=== PATIENT | female | born 1980 | race Caucasian/White ===

== ENCOUNTER 2025-04-06 11:41 | Inpatient (IN) | payer OTHER, SELFPAY ==
--- NOTE | ~2025-04-06 | CT_ITS ---
CLINICAL HISTORY: RUQ epigastric pain. nausea Exam: CT Abdomen and Pelvis With IV Contrast Comparison: 04/06/2025 Findings: The liver density is homogeneous Gallbladder is enlarged measuring 5.1 x 12 cm containing multiple gallstones. The gallbladder wall is thickened measuring 7 mm with pericholecystic fluid. The spleen is normal in size No pancreatic ductal dilatation No hydronephrosis No urinary tract caliber are obstruction Normal bowel caliber No secondary signs of acute appendicitis No free fluid/free air No vascular abnormalities Bladder outline is smooth. Uterus is normal in size. A 1.6 cm left ovarian cyst and 10 mm right ovarian cyst are present. No suspicious skeletal lesions. Impression : Appearance consistent with acute cholecystitis with thickened gallbladder wall with sloughing of the mucosa. No signs of perforation at this time. This document has been electronically signed by: Odell Teresa MD on 04/06/2025 19:27:08
--- NOTE | ~2025-04-06 | US_ITS ---
CLINICAL HISTORY: RUQ pain hx gallstones --- Additional Notes or Special Instructions: look at GB, pancreas, liver, ducts US abdomen limited, with color and pulsed Doppler of the portal vein: Comparison: None Findings: Liver is enlarged measuring 20 cm with increased echogenicity consistent with hepatic disease such as fatty infiltration. Main portal vein Doppler shows antegrade flow. The gallbladder is distended measuring 5 x 12 cm containing multiple gallstones. Gallbladder wall thickness is borderline normal, 3.2 mm. No pericholecystic fluid. In the technologist's worksheet there is question of small anterior gallbladder wall fluid collection. This appearance is due to ring down artifact, not fluid No ascites in the right upper quadrant No sonographic Pickering sign. Common bile duct measures 4.1 mm Body of the pancreas is normal. No ductal dilatation. The tail and uncinate process are obscured by bowel gas. Right kidney is normal Impression: Distended gallbladder with cholelithiasis This document has been electronically signed by: Odell Teresa MD on 04/06/2025 14:14:46
[2025-04-06 11:44] VITALS: BP 124/76; PULSE 78; RESP 18; TEMP 36.6; O2SAT 98; BMI 44.5
--- NOTE | 2025-04-06 11:48 | ED_ITS ---
HPI - Abdominal Pain General Chief Complaint: Abdominal Pain Stated Complaint: abd pain Time Seen by Provider: 04/06/25 13:00 Source: patient, RN notes reviewed and old records reviewed Mode of arrival: ambulatory History of Present Illness ED Provider: Amparo López PA-C HPI narrative: 44-year-old female with a past medical history of gallstones presenting to the ED complaining of upper abdominal pain > RUQ x10 days with associated nausea, vomiting, diarrhea, and decreased p.o. intake. Denies fever, chills, dysuria/hematuria, flank pain. Reports decreased p.o. intake Related Data Allergies Allergy/AdvReac Type Severity Reaction Status Date / Time No Known Allergies Allergy Verified 04/06/25 11:47 Review of Systems Review of Systems Yes all other systems are reviewed and are negative Constitutional: Reports as per [facility] Past Medical History Attestation statement: The following information was validated with the patient. Source: old records reviewed Social History Social History Alcohol intake: current Alcohol intake frequency: holidays/special occasions only Smoked in Last 30 Days: Yes Use of substances other than those prescribed or required for medical reasons: Yes Substance Use Type: Marijuana Substance Use Frequency: Weekly Advance Directives: No Advance Directives Information Provided: No Do you have a plan to hurt others: No Plan Patient : No Physical Exam ED Vital Signs: Vital Signs - 24 hr 04/06/25 11:44 04/06/25 13:12 04/06/25 14:26 Temperature 98 F 98.2 F 98.1 F Pulse Rate 78 108 H 98 Respiratory Rate 18 18 16 Blood Pressure 124/76 125/85 122/78 Pulse Oximetry 98 95 96 Oxygen Delivery Method Room Air Room Air Room Air 04/06/25 16:06 04/06/25 18:56 Temperature 97.8 F 98.0 F Pulse Rate 90 82 Respiratory Rate 18 18 Blood Pressure 148/88 H 139/83 Pulse Oximetry 99 98 Oxygen Delivery Method Room Air Room Air BMI result Body Mass Index 44.5 Const General: cooperative, healthy appearing and no acute distress Orientation/consciousness: patient oriented x3 Limitations: no limitations HENMT Head: Yes normal to inspection and Yes atraumatic Ears: hearing grossly normal bilaterally General nose exam: Normal external nose present Face and sinus: Yes normal facial exam Eyes General: appearance normal, both eyes and all related structures EOM: EOMs intact bilaterally Neck Neck: Yes normal visual inspection and Yes no meningeal signs Resp Effort & Inspection: normal respiratory effort and no respiratory distress Cardio Rate: regular rate GI Inspection: Yes normal to inspection Palpation (GI): Soft to palpation, Tenderness to palpation present (GI) in the epigastrum and in the RUQ; with no rebound tenderness, no guarding and not rigid General: Yes no CVA tenderness Back/Spine/Pelvis Back: no CVA tenderness Skin Rashes: no rashes Wounds: no wounds Neuro General: patient oriented x3, tone normal and no meningeal signs Cranial nerves: Yes CN's II-XII intact bilaterally Gait exam (Neuro): Normal gait present Extrem General: Yes normal to inspection Course Course Course Narrative: This is a Rapid Medical Examination (RME) performed by Gabriel Carpenter PA-C in triage. Full HPI, ROS, assessment and treatment plan per primary provider in the Main ED. Hx: 44 yo F hx gallstones here w/ 10 days of RUQ/ epigastric pain. assoc nausea with eating. no vomiting. PE/vitals: ttp of epigastric/ RUQ, neg willams sign. Plan: labs, US -1419--leukocytosis of 11.7. Labs otherwise reassuring -UA negative US abdomen limited Impression: Distended gallbladder with cholelithiasis > will consult General surgery Dr. Menezes >> general surgery evaluated patient and recommended obtaining CT AP with p.o. and IV contrast 1930-- CT abdomen pelvis w IV con Impression : Appearance consistent with acute cholecystitis with thickened gallbladder wall with sloughing of the mucosa. No signs of perforation at this time. > will re-consult surgery -1955--recommended starting Rocephin and Flagyl > patient to be admitted for acute cholecystitis Medical Decision Making Medical Decision Making MDM Narrative: 44-year-old female with a past medical history of gallstones presenting to the ED complaining of upper abdominal pain > RUQ x10 days with associated nausea, vomiting, diarrhea, and decreased p.o. intake. On exam vital signs stable, NAD, nontoxic appearing, with epigastric/RUQ tenderness, no rebound or guarding, no CVAT. Concern for cholecystitis/lithiasis vs pancreatitis. Lower suspicion for atypical ACS, appendicitis/diverticulitis or renal stone/pyelo Plan: Labs, UA, abdominal ultrasound, IVF, pain control, re-evaluate Please refer to course for remaining clinical decision making, interpretation of labs/imaging results, and discussions with consultants and/or family members. Differential Diagnosis Differential Diagnoses: The differential diagnosis associated with the presentation includes As above Admission/Observation Consideration of admission/observation: Escalation of care including admission/observation considered Lab Data MDM Lab Attestation statement: I reviewed the patient's lab results. 04/06/25 11:54 04/06/25 11:54 Labs: Lab Results 04/06/25 04/06/25 Range/Units 11:54 13:14 WBC 11.7 H (4.8-10.8) X10*3/uL RBC 4.41 (4.20-5.50) X10*6/uL Hgb 12.7 (12.0-16.0) g/dl Hct 38.5 (37.0-47.0) % MCV 87.3 (80.0-98.0) fL MCH 28.8 (27.0-33.0) pg MCHC 33.0 (31.0-35.0) g/dl RDW 13.3 (11.0-16.0) % Plt Count 427 H (160-400) X10*3/uL MPV 9.4 (9.4-12.3) fL Immature Gran % (Auto) 0.6 H (0.0-0.4) % Neut % (Auto) 61.0 (45-73) % Lymph % (Auto) 26.7 (20-40) % Ritchie % (Auto) 6.4 (2-11) % Eos % (Auto) 4.3 H (0-4) % Baso % (Auto) 1.0 (0-2) % Lymph # (Auto) 3.1 (1.2-4.9) X10*3/uL Ritchie # (Auto) 0.8 (0.1-1.2) X10*3/uL Eos # (Auto) 0.5 H (0.0-0.4) X10*3/uL Baso # (Auto) 0.1 (0.0-0.2) X10*3/uL Abs Immat Gran (auto) 0.07 H (0.00-0.03) X10*3/uL Absolute Neuts (auto) 7.1 (2.0-8.3) x10*3/uL Absolute Nucleated RBC 0.000 (0.0-0.012) X10*3/uL Nucleated RBC % (auto) 0.0 (0.0-0.2) /100WBC Sodium 140 (135-145) mmol/L Potassium 4.1 (3.3-5.1) mmol/L Chloride 106 (96-108) mmol/L Carbon Dioxide 26 (22-29) mmol/L Anion Gap 12 (12-20) BUN 9 (9-16) mg/dL Creatinine 0.59 (0.5-1.4) mg/dL Estim Creat Clear Calc 127.9 Estimated GFR > 60 Random Glucose 92 (60-115) mg/dL Calcium 9.4 (8.4-10.2) mg/dL Magnesium 2.1 (1.6-2.6) mg/dL Total Bilirubin 0.2 (0.0-1.0) mg/dL Direct Bilirubin < 0.2 (0.0-0.5) mg/dL AST 21 (5-31) U/L ALT 15 (0-31) U/L Alkaline Phosphatase 113 (39-117) U/L Total Protein 7.8 (6.5-8.0) g/dL Albumin 4.3 (3.5-5.0) g/dL Lipase 42 (8-78) U/L Beta HCG, Quant < 2 mIU/mL Urine Color Yellow Urine Appearance Cloudy Urine pH 5.5 (5.0-9.0) Ur Specific [place] 1.025 (1.005-1.025) Urine Protein Negative (Neg-Trace) mg/dL Urine Glucose (UA) Negative (Negative) mg/dL Urine Ketones Negative (Negative) mg/dL Urine Blood Negative (Negative) Urine Nitrite Negative (Negative) Ur Leukocyte Esterase Negative (Negative) Independent Interpretation I performed an independent interpretation of an: Ultrasound Radiology Impression Discussion of test interpretation with radiology: I have reviewed the radiologist's reading. External Record Review External record reviewed: Inpatient record, Office record, Outpatient record, Prior outpatient labs, Prior outpatient radiology, Primary care record and Outside ED record Tests considered The following testing was considered but not selected: As above Prescription Management I considered prescription management with: Pain Medication Social Determinants Patient?s care significantly limited by Social Determinants of Health including: Other Social Determinant of Health Medications Administered Discontinued Medications Generic Name Dose Route Start Last Admin Trade Name Kwesi PRN Reason Stop Dose Admin Diatrizoate Meglum/Diatrizoate Sod 30 ml 04/06/25 19:05 04/06/25 19:05 Diatrizoate Meglumine, Sodium 30 Ml Solution PO 04/06/25 19:06 30 ml ONCE ONE Administration Sodium Chloride 1,000 mls @ 999 mls/hr 04/06/25 13:15 04/06/25 15:09 Ns IV 04/06/25 14:15 Infused .Q1H1M [id number] Infusion Iohexol 100 ml 04/06/25 19:04 04/06/25 19:04 Iohexol 350 Mg/Ml 100 Ml Infus..Btl IV 04/06/25 19:05 85 ml ONCE ONE Administration Ketorolac Tromethamine 15 mg 04/06/25 13:04 04/06/25 13:53 Ketorolac Tromethamine 15 Mg/Ml Vial IVPUSH 04/06/25 13:05 15 mg ONCE ONE Administration Ondansetron HCl 4 mg 04/06/25 13:04 04/06/25 13:53 Ondansetron Hcl 4 Mg/2 Ml Vial IVPUSH 04/06/25 13:05 4 mg ONCE ONE Administration Critical Care Time Critical Care Time Critical Care Time: Yes Total Critical Care Time: 45 Attestation: I have personally provided critical care time exclusive of time spent on separately billable procedures. Time includes review of lab data, radiology results, discussion with consultants, and monitoring for potential decompensation. Intervention performed as documented. Discharge Plan Discharge Clinical Impression: Acute cholecystitis Patient Disposition: Admitted As Inpatient Print Language: Kosovan
[2025-04-06 11:59] LABS: Hematocrit 38.5 % (37.0-47.0); Hemoglobin 12.7 g/dl (12.0-16.0); Imm Gran Abs Auto 0.07 X10*3/uL (0.00-0.03); Imm Gran Pct Auto 0.6 % (0.0-0.4); Lymphocytes Absolute Auto 3.1 X10*3/uL (1.2-4.9); MANUAL DIFF FLAG NO; Mean Corpuscular HGB Conc 33.0 g/dl (31.0-35.0); Mean Corpuscular Hemoglobin 28.8 pg (27.0-33.0); Mean Corpuscular Volume 87.3 fL (80.0-98.0); NRBC Abs Auto 0.000 X10*3/uL (0.0-0.012); NRBC Pct Auto 0.0 /100WBC (0.0-0.2); Platelet Count 427 X10*3/uL (160-400); Red Blood Count 4.41 X10*6/uL (4.20-5.50); White Blood Count 11.7 X10*3/uL (4.8-10.8)
--- OUTSIDE RECORDS SUMMARY | 2025-04-06 12:00 | XMS_ITS | Data Portability ---
Author Organization [place] - [facility], Allergy Address [address] [address] Care Team Providers Care Magento Developer Name Role Phone NAWAF BALDWIN Primary Care Provider Assessment Encounter Date Assessment Date Assessment LastModified by Organization Details LastModified Time 11/23/2023 11/23/2023 Administered By: SEBASTIEN Bell Use of Antihistamines: No If yes: Vial Test Change in medications: No If yes Increase in asthma symptoms If yes, inhaler use: Reaction to last injections: No If yes: Allergy Symptoms: Other: Missed 1 week Dose Notes: [email or web address] Not available 11/23/2023 16:39:22 12/07/2023 12/07/2023 Administered By: SEBASTIEN Bell Use of Antihistamines: No If yes: Vial Test Change in medications: No If yes Increase in asthma symptoms If yes, inhaler use: Reaction to last injections: No If yes: Allergy Symptoms: Other: Missed 1 week Dose Notes: [email or web address] Not available 12/07/2023 13:33:34 12/22/2023 12/22/2023 Administered By: SEBASTIEN Bell Use of Antihistamines: Yes If yes: Vial Test Change in medications: No If yes Increase in asthma symptoms If yes, inhaler use: Reaction to last injections: No If yes: Allergy Symptoms: Other: Missed 1 week Dose Notes: [email or web address] Not available 12/22/2023 16:07:07 01/04/2024 01/04/2024 Administered By: SEBASTIEN Bell Use of Antihistamines: No If yes: Vial Test Change in medications: No If yes Increase in asthma symptoms If yes, inhaler use: Reaction to last injections: No If yes: Allergy Symptoms: Other: Missed 1 week Dose Notes: [email or web address] Not available 01/04/2024 16:05:18 02/07/2024 02/07/2024 Administered By: Darrin Hurd RN Use of Antihistamines: If yes: Vial Test Change in medications: If yes Increase in asthma symptoms If yes, inhaler use: Reaction to last injections: If yes: Allergy Symptoms: Other: Missed 1 week Dose Notes:missed 1 month- vials had been discarded due to expiration. Patient will return next week for a vial test. [email or web address] Not available 02/07/2024 15:08:56 Plan of Treatment Reminders Order Date Submit Date Provider Last Modified By Organization Details Last Modified Time Details Appointments None record ed. Lab None record ed. Referral None record ed. Procedures None record ed. Surgeries None record ed. Imaging None record ed. Medication Orders None record ed. Patient TargetsNo targets recorded. Patient InstructionsNo instructions recorded. Reason for Referral None Reported. Results Created Date Observation Date Name Description Value Unit Range Abnormal Flag Note LastModifiedBy Organization Detail LastModifiedTime 12/22/19 24 08/11/2021 imagi ng/di agnos tic resul t No observ ation record ed. [email or web address] Not Available 00:04:45 12/22/19 24 03/05/2021 imagi ng/di agnos tic resul t No observ ation record ed. [email or web address] Not Available 00:06:40 Result Notes None recorded. 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; Note: Date Diagnosed : 04/01/2020 12:29 PM (J33.1) Not Available [facility] 4 02:45:44 Bilateral disorder of Eustachia n tubes 58675654897 29272 Active 2021 Other specified disorders of Eustachia n tube, bilateral ; Note: Date Diagnosed : 08/11/2021 1:31 PM (H69.83) Not Available [facility] 4 02:45:34 Conductiv e hearing loss, bilateral 424632088 Active 2021 Conductiv e hearing loss, bilateral ; Note: Date Diagnosed : 08/11/2021 1:35 PM (H90.0) Not Available [facility] 4 02:45:40 Allergic rhinitis 22741571 Active 2023 TIM ANNE MD 100 [facility],[place] [address], [place], [address] , [facility] - [facility] 4 13:15:11 Perennial allergic rhinitis 930443192 Active 2023 RAM[address]DEEP OCONNOR [address],[place] [address], [place], [address] , [facility] - [facility] 4 14:36:15 Problem Notes None recorded. Procedures Surgical History Date Name Laterality Status Provider Name and Address Organization Details Recorded Time 02/07/20 24 Allergy Immunotherapy Injections completed DARRIN HURD RN 100 [facility],[address], [address], [facility] - [facility] 02/07/2024 15:08:22 01/04/20 24 Allergy Immunotherapy Injections completed RAMANDEEP OCONNOR [address], [address], [facility] - [facility] 01/04/2024 16:04:59 12/22/19 24 Allergy Immunotherapy Injections completed LEONILA FOUNTAIN [address], [address], [facility] - [facility] 12/22/2023 16:06:48 12/07/19 24 Allergy Immunotherapy Injections completed RAMANDEEP OCONNOR [facility] 100 [facility],[address], [address], [facility] - [facility] 12/07/2023 13:33:26 11/23/19 24 Allergy Immunotherapy Injections completed RAMANDEEP OCONNOR RMA [address], [place], [address], [facility] - [facility] 11/23/2023 16:39:09 11/17/19 24 Allergy Immunotherapy Injections completed DARRIN HURD RN [address], [address], [facility] - [facility] 11/17/2023 10:40:03 11/10/19 24 Allergy Immunotherapy Injections completed JESUS GRIFFITHSA [address], [place], [address], [facility] - [facility] 11/10/2023 11:39:00 11/04/19 24 Allergy Immunotherapy Injections completed JESUS GRIFFITHSA [address] [address], [address], [facility] - [facility] 11/04/2023 14:05:08 10/20/19 24 Allergy Immunotherapy Injections completed JESUS GRIFFITHSA [address] [facility] [address] [facility], [place], [address], [facility] - [facility] 10/20/2023 15:32:53 10/06/19 24 Allergy Immunotherapy Injections completed RAMANDEEP OCONNOR RMA [address] [facility] [address] [place] [address], [address], [facility] - [facility] 10/06/2023 10:36:35 09/23/19 24 Allergy Immunotherapy Injections completed RAMANDEEP OCONNOR RMA [address] [facility] [address], [address], [facility] - [facility] 09/23/2023 14:37:12 09/13/19 24 Allergy Immunotherapy Injections completed RAMANDEEP TANGC, RMA [address], [address], [facility] - [facility] 09/13/2023 14:36:42 Imaging Results None recorded. Procedure Notes None recorded. Medical Equipment None Reported. Allergies Allergen ID Allergen Name Allergen Category Reaction Reaction Severity Criticality Documentation Date Start Date Code Code System Note Provider Name and Address Organization Details Recorded Time 166053 Benadryl medicatio n Not available Not available Not available 09/13/202356986 7 RxNorm React ion: other react ion, Hyper activ e behav ior; Not Available [facility] 01:08:20 Medications Name Sig Start Date Stop Date Status Note LastModified by Organization Details LastModified Time buspirone 5 mg tablet TAKE 1 TABLET BY MOUTH 3 TIMES A DAY active Not Available Not Available No t Available ketoconaz ole 2 % shampoo APPLY TO SCALP 2 TIMES A WEEK, LEAVE ON FOR 5 MIN, THEN RINSE active Not Available Not Available No t Available citalopra m 40 mg tablet 01/25 completed Medicati on ID: [id number] B rand Name: citalopr am Send Method: E-Prescr ibed Sub s Allowed: subs OK Medic ationGen ericName : citalopr am Not Available Not Available Not Available azithromy umesh 250 mg tablet TAKE 2 TABLETS BY MOUTH TODAY, THEN TAKE 1 TABLET DAILY FOR 4 DAYS active Not Available Not Available No t Available amlodipin e 10 mg tablet TAKE 1 TABLET BY MOUTH EVERY DAY active Not Available Not Available No t Available benzonata te 100 mg capsule TAKE 1 CAPSULE (ORAL) 2 TIMES PER DAY (COUGH) FOR 5 DAYS active Not Available Not Available No t Available paroxetin e 20 mg tablet TAKE 2 TABLETS BY MOUTH EVERY DAY active Not Available Not Available No t Available buspirone 10 mg tablet TAKE 1 TABLET BY MOUTH THREE TIMES A DAY NEEDED FOR ANXIETY active Not Available Not Available No t Available triamcino lone acetonide 55 mcg nasal spray aerosol SPRAY 1 SPRAY INTO BOTH NOSTRIL ONCE DAILY active Not Available Not Available No t Available losartan 25 mg tablet TAKE 1 TABLET BY MOUTH EVERY DAY active Not Available Not Available No t Available bupropion HCl 75 mg tablet 11/16 completed Medicati on ID: [id number] B rand Name: bupropio n HCl Send Method: E-Prescr ibed Sub s Allowed: subs OK Medic ationGen ericName : bupropio n HCl Not Available Not Available Not Available budesonid e 0.5 mg/2 mL suspensio n for nebulizat ion 2019 active Medicati on ID: [id number] D uration Value: 30 Brand Name: budthao elizondo Send Method: E-Prescr ibed Sub s Allowed: subs OK Speci al Instruct ion: use one vial in [employer]med rinse twice daily. 1/2 bottle per nostril. Medicat ionGener icName: budesoni de Not Available Not Available Not Available diclofena c sodium 75 mg tablet,de layed release TAKE 1 TABLET BY MOUTH TWICE A DAY active Not Available Not Available No t Available hydroxyzi ne HCl 25 mg tablet TAKE 1 TABLET BY MOUTH TWICE A DAY NEEDED active Not Available Not Available No t Available epinephri ne 0.3 mg/0.3 mL injection , auto-inje ctor TAKE 1 AUTO NEEDED BY INJECTIO N ROUTE FOR 1 DAY, FOR ANAPHYLA XIS. active Not Available Not Available No t Available methylpre dnisolone 4 mg tablets in a dose pack TAKE 6 TABLETS ON DAY 1 DIRECTED ON PACKAGE AND DECREASE BY 1 TAB EACH DAY FOR A TOTAL OF 6 DAYS active Not Available Not Available No t Available albuterol sulfate HFA 90 mcg/actua tion aerosol inhaler active Not Available Not Available Not Available paroxetin e 40 mg tablet TAKE 1 TABLET BY MOUTH EVERY MORNING FOR DEPRESSI ON active Not Available Not Available No t Available doxycycli ne hyclate 100 mg tablet TAKE 1 TABLET BY MOUTH TWICE A DAY FOR 10 DAYS active Not Available Not Available No t Available loratadin e 10 mg tablet TAKE 1 TABLET BY MOUTH EVERY DAY active Not Available Not Available No t Available escitalop jamel 5 mg tablet active Medicati on ID: [id number] B rand Name: escitalo pram oxalate Send Method: E-Prescr ibed Sub s Allowed: subs OK Medic ationGen ericName : escitalo pram oxalate Not Available Not Available Not Available aripipraz ole 2 mg tablet TAKE 1 TABLET BY MOUTH EVERY DAY active Not Available Not Available No t Available melatonin 10 mg tablet active Medicati on ID: [id number] B rand Name: melatoni n Send Method: E-Prescr ibed Sub s Allowed: subs OK Medic ationGen ericName : melatoni n Not Available Not Available Not Available Flonase Allergy Relief 50 mcg/actua tion nasal spray,trish pension 2 spray into both nostrils 2021 active Medicati on ID: [id number] D uration Value: 30 Prescri bed By Name: Funmilayo Maria Guadalupe s, PA-C Bra nd Name: Flonase Allergy Relief S end Method: E-Prescr ibed Sub s Allowed: subs OK Medic ationGen ericName : Flonase Allergy Relief Not Available Not Available Not Available Vitals None Recorded Social History None recorded. Functional Status None recorded. Mental Status None recorded. Family History Nothing Reported. Medical History No medical history recorded. Gynecological HistoryNo gynecological history recorded. Obstetrics History GPAL:G 0 P 0 0 0 0 Past Encounters Encounter ID Performer Location Encounter Start Date Encounter Closed Date Diagnosis/Indication Diagnosis SNOMED-CT Code Diagnosis ICD10 Code Diagnosis IMO Codes Diagnosis Note [id number] DARRIN HURD RN Allergy [address] [facility],[address] [place] [address] 09/13/2023 14:27:16 09/16/2023 12:47:06 Perennial allergic rhinitis [id number] J30.89 [id number] [facility], A Allergy 100 [facility],[address] [place] [address] 09/23/2023 14:36:02 09/23/2023 14:48:51 Perennial allergic rhinitis [id number] J30.89 [id number] TIM ANNE [facility] [place] [address] 10/07/2023 14:10:09 10/07/2023 15:03:50 Allergic rhinitis 05326067 J30.89 [id number] 100 [facility],[address] [place] [address] 10/06/2023 09:23:02 10/06/2023 11:41:21 Perennial allergic rhinitis [id number] J30.89 [id number] LEONILA FOUNTAIN A Allergy 100 [facility],[address] [place] [address] 10/20/2023 15:30:44 10/20/2023 15:40:54 Perennial allergic rhinitis [id number] J30.89 [id number] LEONILA FOUNTAIN A Allergy 100 [facility],[address] [place] [address] 11/04/2023 14:03:57 11/04/2023 15:32:50 Perennial allergic rhinitis [id number] J30.89 [id number] LEONILA FOUNTAIN, A Allergy 100 [facility] [place] [place] [address] 11/10/2023 11:20:30 11/10/2023 13:47:10 Perennial allergic rhinitis 479704327 J30.89 [id number] DARRIN HURD RN Allergy 100 [facility] [place],[address] [place] [address] 11/17/2023 10:13:09 11/17/2023 10:42:02 Perennial allergic rhinitis [id number] J30.89 [id number] [facility], RMA Allergy [address] [facility] [address] [place] [address] 11/23/2023 16:33:38 11/23/2023 16:53:57 Perennial allergic rhinitis [id number] J30.89 [id number] [facility] All[facility] [address] [place] [address] 12/07/2023 10:33:22 12/07/2023 13:34:45 Perennial allergic rhinitis [id number] J30.89 [id number] [facility] All[facility] [address] [facility] [address] [place] [address] 12/22/2023 16:01:29 12/23/2023 10:50:54 Perennial allergic rhinitis [id number] J30.89 [id number] [facility] All[facility] [address] [facility] [address] [place] [address] 01/04/2024 15:32:26 01/04/2024 16:26:02 Perennial allergic rhinitis [id number] J30.89 [id number] DARRIN HURD RN Allergy [address] [facility] [place],[address] [place] [address] 02/07/2024 15:07:43 02/07/2024 15:09:27 Perennial allergic rhinitis 380796778 J30.89 Health Concerns Section Related Observation LastModified by Organization Detai ls LastModified Time None Recorded Concern Status LastModified by Organization Details LastModified Time None Recorded Advance Directives Directive None Recorded Payers Insurance Date Sequence Insurance Name Policy Number Policy Arce Covered Member ID Arce Member ID Guarantor Name 12/07/2023 1 [facility] Disha Davisto [id number] Disha Colin Osorio 12/07/2023 1 [facility] Disha Colin Osorio [id number] Disha Colin Osorio 04/16/2024 1 [facility] [place] ([id number]) [id number] Disha Davisto [id number] Disha Colin Osorio 11/08/2023 1 [facility] (MEDICAID REPLACEMENT - [facility]) Disha Colin Osorio [id number] Disha Colin Osorio 10/06/2023 1 *SELF PAY* Raomn Colin Osorio 11/08/2023 1 [facility] ([facility] Disha Davisto [id number] Disha Colin Osroio OBGyn Episode No OBEpisode recorded.
[2025-04-06 12:18] LABS: Alanine Aminotransferase 15 U/L (0-31); Albumin Level 4.3 g/dL (3.5-5.0); Alkaline Phosphatase 113 U/L (39-117); Anion Gap 12 (12-20); Aspartate Amino Transferase 21 U/L (5-31); Blood Urea Nitrogen 9 mg/dL (9-16); Calcium 9.4 mg/dL (8.4-10.2); Carbon Dioxide 26 mmol/L (22-29); Chloride 106 mmol/L (96-108); Creatinine Clr Calc Pharmacy 127.9; Estimated Glomerular Filt Rate > 60; Potassium 4.1 mmol/L (3.3-5.1); Sodium 140 mmol/L (135-145); Total Protein 7.8 g/dL (6.5-8.0)
[2025-04-06 13:12] VITALS: BP 125/85; PULSE 108; RESP 18; TEMP 36.8; O2SAT 95
[2025-04-06 13:21] LABS: Appearance Urine Cloudy; Glucose Urine UA Negative (Negative); PH 5.5 (5.0-9.0); Specific Gravity - Urine 1.025 (1.005-1.025)
[2025-04-06 13:29] LABS: Lipase 42 U/L (8-78); Magnesium 2.1 mg/dL (1.6-2.6)
[2025-04-06 14:26] VITALS: BP 122/78; PULSE 98; RESP 16; TEMP 36.7; O2SAT 96
--- NOTE | 2025-04-06 14:28 | PC.NURSE ---
A&O x 3 Patient presents to ED c/o ABD pain for approx 10 days with associated n/v Patient at this time isnt experiencing pain or n/v IV 20G LAC, currently running NS 1L Patient had US of ABD, awaiting results
[2025-04-06 16:06] VITALS: BP 148/88; PULSE 90; RESP 18; TEMP 36.6; O2SAT 99
[2025-04-06 18:56] VITALS: BP 139/83; PULSE 82; RESP 18; TEMP 36.7; O2SAT 98
[2025-04-06] MEDS: iohexoL 350 MG/ML 100 ML INFUS..BTL IV (19:04)
--- NOTE | 2025-04-06 19:07 | PC.NURSE ---
20 g IV left AC
--- NOTE | 2025-04-06 19:08 | PC.NURSE ---
Assumed care of pt, pt resting quietly on stretcher. All needs met at this time, call irizarry within reach
[2025-04-06] MEDS: Nicotine 14 MG PATCH.TD24 TRANSDERMA (20:35)
[2025-04-06] MEDS: metroNIDAZOLE/NS 500 MG/100 ML PIGGYBACK 100 MG IV (21:08)
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
--- NOTE | 2025-04-06 21:59 | PC.NURSE ---
Report called to OR nurse. This RN and transport to bring pt to OR.
--- NOTE | 2025-04-06 22:06 | HO.ANESPROP2 ---
HPI - Anesthesia Eval Consult details Narrative: for lap. cholecystectomy PMFSH Active Problems Active Problems: All Active Problems Acute cholecystitis (Acute) Past Medical History Patient : No Family History Family history of problems with anesthesia: No Surgical History History of Problems with Anesthesia: No Social History Social History Alcohol intake: current Alcohol intake frequency: holidays/special occasions only Patient Tobacco Use Status: Current everyday Tobacco user Substance Use Type: Marijuana Meds Allergies Allergy/AdvReac Type Severity Reaction Status Date / Time No Known Allergies Allergy Verified 04/06/25 11:47 Active Medications: Current Medications Acetaminophen (Acetaminophen 325 Mg Tablet) 650 mg PO Q6H PRN PRN Reason: Pain, Mild 1-3,fever,headache Al Hydroxide/Mg Hydroxide (Magnesium Hydrox/Alum Hydrox 30 Ml Oral.Susp) 30 ml PO Q4H PRN PRN Reason: Heartburn Calcium Carbonate (Calcium Carbonate 750 Mg Tab.Chew) 750 mg PO Q4H PRN PRN Reason: Heartburn Enoxaparin Sodium (Enoxaparin Sodium 40 Mg/0.4 Ml Syringe) 40 mg SUBCUT Q24H [facility] Last Admin: 04/06/25 20:34 Dose: 40 mg Hydromorphone HCl (Hydromorphone Hcl 1 Mg/Ml Syringe) 0.5 mg IVPUSH Q4H PRN; Protocol PRN Reason: Pain, Severe (Pain Scale 7-10) Dextrose/Sodium Chloride (D5ns) 1,000 mls @ 100 mls/hr IVCONT .Q10H [facility] Last Admin: 04/06/25 21:42 Dose: 100 mls/hr Magnesium Hydroxide (Milk Of Magnesia 30 Ml Oral.Susp) 30 ml PO DAILY PRN PRN Reason: Constipation Melatonin (Melatonin 3 Mg Tablet) 6 mg PO BEDTIME PRN PRN Reason: Insomnia Nicotine Polacrilex (Nicotine Polacrilex 2 Mg Gum) 2 mg BUCCAL Q2H PRN PRN Reason: Nicotine Cravings Ondansetron HCl (Ondansetron Hcl 4 Mg/2 Ml Vial) 4 mg IVPUSH Q8H PRN PRN Reason: Nausea and Vomiting Oxycodone HCl (Oxycodone Hcl Immed Release 5 Mg Tablet) 5 mg PO Q6H PRN PRN Reason: Pain, Moderate(Pain Scale 4-6) Sodium Chloride (0.9 % Sodium Chloride Flush 3 Ml Syringe) 3 ml IVFLUSH QSHIFT [facility] Temazepam (Temazepam 15 Mg Capsule) 15 mg PO BEDTIME PRN PRN Reason: Insomnia Exam Height,Weight and Vital Signs: Height 4 ft 11 in Weight 100 kg Last Vital Signs Temp 98.0 F 04/06/25 18:56 Pulse 82 04/06/25 18:56 Resp 18 04/06/25 18:56 BP 139/83 04/06/25 18:56 Pulse Ox 98 04/06/25 18:56 O2 Del Method Room Air 04/06/25 18:56 Pertinent Lab Results Pertinent Lab Results: Laboratory Tests 04/06/25 04/06/25 11:54 13:14 WBC 11.7 H RBC 4.41 Hgb 12.7 Hct 38.5 MCV 87.3 MCH 28.8 MCHC 33.0 RDW 13.3 Plt Count 427 H MPV 9.4 Immature Gran % (Auto) 0.6 H Neut % (Auto) 61.0 Lymph % (Auto) 26.7 Bradley % (Auto) 6.4 Eos % (Auto) 4.3 H Baso % (Auto) 1.0 Lymph # (Auto) 3.1 Bradley # (Auto) 0.8 Eos # (Auto) 0.5 H Baso # (Auto) 0.1 Abs Immat Gran (auto) 0.07 H Absolute Neuts (auto) 7.1 Absolute Nucleated RBC 0.000 Nucleated RBC % (auto) 0.0 Sodium 140 Potassium 4.1 Chloride 106 Carbon Dioxide 26 Anion Gap 12 BUN 9 Creatinine 0.59 Estim Creat Clear Calc 127.9 Estimated GFR > 60 Random Glucose 92 Calcium 9.4 Magnesium 2.1 Total Bilirubin 0.2 Direct Bilirubin < 0.2 AST 21 ALT 15 Alkaline Phosphatase 113 Total Protein 7.8 Albumin 4.3 Lipase 42 Beta HCG, Quant < 2 Urine Color Yellow Urine Appearance Cloudy Urine pH 5.5 Ur Specific [place] 1.025 Urine Protein Negative Urine Glucose (UA) Negative Urine Ketones Negative Urine Blood Negative Urine Nitrite Negative Ur Leukocyte Esterase Negative Airway Mallampati Class: II TM Dist: <=3cm Neck ROM: Full Loose/Missing/Broken Teeth: No Heart: ok Lungs: ok Assessment and Plan Assessment Anesthesia Assessment: Anesthesia Plan Discussed and Chart Reviewed Final Anesthetic Review Family History of Problems with Anesthesia: No History of Problems with Anesthesia: No NPO: Yes ASA Class: III and Emergency Final Preanesthetic Review: No Changes in Pt Med Stat, Meds/Allgs Chart Reviewed, Consent Obtained/Reviewed and Anes Risks/Benef Reviewed Patient Risk: Intermediate Procedure Risk: Intermediate Anesthetic Plan Anesthetic Plan: GA and Agree w/ Assess. and Plan Disposition: Standard PACU
--- NOTE | 2025-04-06 22:22 | HO.NURTONUR ---
Pt is a 44 y.o. female coming in with RUQ abd pain and n/v x 10 days. PMH gallstones. Abd CT shows Appearance consistent with acute cholecystitis with thickened gallbladder wall with sloughing of the mucosa. No signs of perforation at this time. Labs grossly unremarkable. VSS, a&ox4. Ambulates independently. 20 g IV left AC. D5NS running at 100 mL/hr. Pt was transported to the OR at 2210.
[2025-04-07] VITALS (15 sets, daily range): BP systolic 126–171; BP diastolic 71–99; PULSE 65–98; RESP 12–18; TEMP 36.2–37.4; O2SAT 94–99; BMI 46.0
--- NOTE | 2025-04-07 01:54 | P.OP_ITS ---
Operative Note Operative Note Date of Service: 04/07/25 Narrative: Preoperative diagnosis: Chronic cholecystitis Postoperative diagnosis: Same Procedure performed: Laparoscopic Hemicholecystectomy Surgeon: Carlitos Menezes MD Specimen: Gallbladder wall and contents Findings: Severely inflamed and edematous gallbladder with fatty liver Anesthesia: GETA Blood Loss: 100cc The patient was brought to the operating room and placed supine on the table. The arms and legs were cushioned appropriately and Venodyne boots were cycled. The patient's abdomen was then prepped and draped in the standard sterile fashion. After this approximately 20 cc of Marcaine without epinephrine were infused in the skin and soft tissue in the infraumbilical region of the patient's abdomen. Through this locally anesthetized site disturbances with created with an 11 Blade following Rose Mary's lines of the skin. It was carried down with a combination of blunt sharp dissection to the level of the umbilical root which was grasped elevated exposing the median raphe. A stab incision was then created the median raphe and gently spread with a Schnidt clamp allowing access to the peritoneal cavity. A 12 mm trocar port was then placed and CO2 gas was insufflated to create a pneumoperitoneum. Once the anterior abdominal pressure reached approximately 1 5 mmHg the intra-abdominal contents were surveyed with the laparoscope. There is no evidence of injury from placement of either local anesthetic or to the laparoscopic trocar port. The patient was placed in reverse Trendelenburg position with her left side down. Four more 5 mm ports were placed via separate stab incisions under direct visualization of the laparoscope. First was with a right lateral subcostal 5 mm ports 2nd was a right periumbilical 5 mm port the 3rd was an epigastric 5 mm port in the last ultimately was a left lateral subcostal 5 mm port at served a self-retaining liver retractor. The gallbladder was in the normal anatomic position underneath segment 5 of the liver. It was very inflamed and edematous the wall of the gallbladder was at least a cm thick. The liver was utterly massive and fatty and dominated the entire upper abdomen. The gallbladder was also somewhat intrahepatic. Because of this we placed a self-retaining liver retractor for visualization. Despite extensive efforts to adequately expose the region of the cystic duct the cystic artery, we felt that the appropriate view could be reached but the tissues were so inflamed that normal anatomic structure was then decipherable. I felt trying to dissect out the cystic duct the cystic artery would most likely result in catastrophic bleeding or worse, a bile duct injury and therefore endevored to perform a becca cholecystectomy with a top-down approach. Leaving a significant portion of the back wall of the gallbladder on the underside of the liver would have been mandatory anyway even with a traditional technique because of the severe inflammation in the entire region. We then used cautery to access the lumen of the gallbladder at the apex. It was productive of large amounts of dark green bile. This was suctioned away in enabled us to manipulate the gallbladder somewhat although the massively fatty liver precluded normal maneuvers performed during a minimally invasive cholecystectomy. We then used the Thunderbeat device to remove most of the anterior wall of the gallbladder. Multiple large and small gallstones were e ncountered. These were all carefully and painstakingly policed and placed in an Endo-Catch retrieval bag. We then finished the excision of the anterior wall of the gallbladder with a Thunderbeat device leaving a small cuff of gallbladder neck. Two 2-0 silk sutures on SH needles were used to suture tie the junction between the cystic duct and the gallbladder neck shut. This resulted in obliteration without bile leakage. The anterior wall of the gallbladder was also placed an Endo-Catch retrieval device. The right upper quadrant was then copiously irrigated with saline and evacuated. A 15 Upper Sorbian flat drain was then brought in via the left subcostal port site and placed in the gallbladder fossa. It was affixed to the skin with 2-0 nylon suture. The gallbladder wall and gallstones were then removed with the patient's abdomen and passed off table as a specimen. Final laparoscopic surveillance revealed no evidence of hemorrhage or visceral injury. The fascia underlying the infraumbilical port was closed using 0 Vicryl on a UR 6 needle. All the skin incisions were then closed with 4-0 Monocryl in a buried subcuticular fashion. Steri-Strips and sterile occlusive dressings were applied. The patient tolerated procedure well, was recovered from anesthesia and taken to the recovery room in good condition. It should be noted that the sponge instrument needle counts were correct in the case and that I performed all aspects of the case. Also discussed the details case with the patient afterward.
[2025-04-07 06:42] LABS: Hematocrit 37.0 % (37.0-47.0); Hemoglobin 11.7 g/dl (12.0-16.0); Mean Corpuscular HGB Conc 31.6 g/dl (31.0-35.0); Mean Corpuscular Hemoglobin 28.1 pg (27.0-33.0); Mean Corpuscular Volume 88.7 fL (80.0-98.0); NRBC Abs Auto 0.000 X10*3/uL (0.0-0.012); NRBC Pct Auto 0.0 /100WBC (0.0-0.2); Platelet Count 384 X10*3/uL (160-400); Red Blood Count 4.17 X10*6/uL (4.20-5.50); White Blood Count 12.7 X10*3/uL (4.8-10.8)
[2025-04-07 07:01] LABS: Alanine Aminotransferase 27 U/L (0-31); Albumin Level 3.8 g/dL (3.5-5.0); Alkaline Phosphatase 111 U/L (39-117); Anion Gap 14 (12-20); Aspartate Amino Transferase 38 U/L (5-31); Blood Urea Nitrogen 7 mg/dL (9-16); Calcium 8.8 mg/dL (8.4-10.2); Carbon Dioxide 24 mmol/L (22-29); Chloride 106 mmol/L (96-108); Creatinine Clr Calc Pharmacy 116.7; Estimated Glomerular Filt Rate > 60; Potassium 4.6 mmol/L (3.3-5.1); Sodium 139 mmol/L (135-145); Total Protein 6.8 g/dL (6.5-8.0)
--- NOTE | 2025-04-07 08:13 | PHA.MEDREC ---
Pharmacy Consult ? Medication Reconciliation Pharmacy has completed the medication reconciliation.Med rec complete, spoke to patient and compared with pharmacy claims history. Patient has not filled abilify in a while but claims is still taking this
[2025-04-07] MEDS: metroNIDAZOLE/NS 500 MG/100 ML PIGGYBACK 100 MG IV (11:38)
--- NOTE | 2025-04-07 12:10 | P.PNGS_ITS ---
Subjective Subjective Date of Service: 04/07/25 Interval history: Patient reports she is feeling ?at her?. She tolerated a clear liquid diet overnight without nausea or vomiting has been up and ambulating. ?I did not realize how bad I felt. ? Physical Exam 2 Vital Signs: Vital Signs: Last Vital Signs Temp 98.7 F 04/07/25 11:44 Pulse 65 04/07/25 11:44 Resp 18 04/07/25 11:44 BP 143/88 H 04/07/25 11:44 Pulse Ox 96 04/07/25 11:44 O2 Del Method Room Air 04/07/25 11:44 O2 Flow Rate 2 04/07/25 03:25 BMI result Body Mass Index 46.0 GI: Other: Abdomen soft morbidly obese. Appropriate tenderness for this stage of her convalescence. Left upper quadrant MOSES drain with serosanguineous fluid. No evidence of bile leak at this point. Objective Data Active Medications Acetaminophen (Acetaminophen 325 Mg Tablet) 650 mg PO Q6H PRN PRN Reason: Pain, Mild 1-3,fever,headache Al Hydroxide/Mg Hydroxide (Magnesium Hydrox/Alum Hydrox 30 Ml Oral.Susp) 30 ml PO Q4H PRN PRN Reason: Heartburn Calcium Carbonate (Calcium Carbonate 750 Mg Tab.Chew) 750 mg PO Q4H PRN PRN Reason: Heartburn Enoxaparin Sodium (Enoxaparin Sodium 40 Mg/0.4 Ml Syringe) 40 mg SUBCUT Q24H [facility] Last Admin: 04/06/25 20:34 Dose: 40 mg Documented By: ROEJUL Hydromorphone HCl (Hydromorphone Hcl 1 Mg/Ml Syringe) 0.5 mg IVPUSH Q4H PRN; Protocol PRN Reason: Pain, Severe (Pain Scale 7-10) Last Admin: 04/07/25 09:14 Dose: 0.5 mg Documented By: EDEL Ceftriaxone Sodium 1 gm/ (Sodium Chloride) 50 mls @ 100 mls/hr IV Q12H ONE Stop: 04/07/25 12:29 Metronidazole (Flagyl) 500 mg in 100 mls @ 100 mls/hr IV ONCE ONE Stop: 04/07/25 12:22 Last Admin: 04/07/25 11:38 Dose: 100 mls/hr Documented By: EDEL Ketorolac Tromethamine (Ketorolac Tromethamine 30 Mg/Ml Vial) 30 mg IVPUSH Q6H PRN PRN Reason: Breakthrough Pain Stop: 04/12/25 02:05 Last Admin: 04/07/25 12:02 Dose: 30 mg Documented By: EDEL Magnesium Hydroxide (Milk Of Magnesia 30 Ml Oral.Susp) 30 ml PO DAILY PRN PRN Reason: Constipation Magnesium Hydroxide (Milk Of Magnesia 30 Ml Oral.Susp) 30 ml PO DAILY PRN PRN Reason: Constipation Melatonin (Melatonin 3 Mg Tablet) 6 mg PO BEDTIME PRN PRN Reason: Insomnia Naloxone HCl (Naloxone Hcl 0.4 Mg/Ml Vial) 0.04 mg IVPUSH Q5M PRN PRN Reason: Excessive sedation or RR < 8 Nicotine Polacrilex (Nicotine Polacrilex 2 Mg Gum) 2 mg BUCCAL Q2H PRN PRN Reason: Nicotine Cravings Nicotine Polacrilex (Nicotine Polacrilex Lozenge 2 Mg Lozenge) 2 mg BUCCAL Q2H PRN PRN Reason: Nicotine Cravings Ondansetron HCl (Ondansetron Hcl 4 Mg/2 Ml Vial) 4 mg IVPUSH Q8H PRN PRN Reason: Nausea and Vomiting Oxycodone HCl (Oxycodone Hcl Immed Release 5 Mg Tablet) 5 mg PO Q6H PRN PRN Reason: Pain, Moderate(Pain Scale 4-6) Sodium Chloride (0.9 % Sodium Chloride Flush 3 Ml Syringe) 3 ml IVFLUSH QSHIFT [facility] Last Admin: 04/07/25 06:52 Dose: Not Given Documented By: EDEL Non-Admin Reason: IV Running Temazepam (Temazepam 15 Mg Capsule) 15 mg PO BEDTIME PRN PRN Reason: Insomnia Labs 04/07/25 06:00 04/07/25 06:00 Labs: Laboratory Results - last 24 hr 04/06/25 04/06/25 04/07/25 11:54 13:14 06:00 MCV 88.7 MCH 28.1 MCHC 31.6 RDW 13.4 Plt Count 384 MPV 9.9 Absolute Nucleated RBC 0.000 Nucleated RBC % (auto) 0.0 Anion Gap 12 14 Estim Creat Clear Calc 127.9 116.7 Estimated GFR > 60 > 60 Random Glucose 92 115 Calcium 9.4 8.8 D Magnesium 2.1 Total Bilirubin 0.2 0.2 Direct Bilirubin < 0.2 AST 21 38 H ALT 15 27 Alkaline Phosphatase 113 111 Total Protein 7.8 6.8 Albumin 4.3 3.8 Lipase 42 Beta HCG, Quant < 2 Urine Color Yellow Urine Appearance Cloudy Urine pH 5.5 Ur Specific [place] 1.025 Urine Protein Negative Urine Glucose (UA) Negative Urine Ketones Negative Urine Blood Negative Urine Nitrite Negative Ur Leukocyte Esterase Negative Procedures Date of Service Date of Service: 04/07/25 Progress Note: A&P Time Spent With Patient Time: I told the patient I was happy with her progress so far. I added that we would start a regular diet and monitor her tolerance. We will also monitor the drain output. Should return bilious then GI evaluation for ERCP would be the next step. She said she was happy with that plan. Total time managing care of this patient today _30___ minutes. Quality Stroke Does the patient have a stroke diagnosis?: No VTE Prior VTE?: No VTE Risk Level:: Surgical - moderate VTE Device Contraindication: N/A - Device Ordered VTE Drug Contraindication: N/A - Med Ordered
[2025-04-07] MEDS: Nicotine 14 MG PATCH.TD24 TRANSDERMA (12:55)
--- NOTE | 2025-04-07 15:37 | MHC.CM.PN ---
DX Cholecystitis S/P Lap [place] She lives with other family members She is independent with all functional mobility. New HCP documented and scanned into EMR. DP Home self care. Patient has arranged for her mother to provide transportation home.
[2025-04-07] MEDS: 0.9 % Sodium Chloride Flush 3 ML SYRINGE IVFLUSH (21:04)
[2025-04-08] MEDS: oxyCODONE HCl Immed Release 5 MG TABLET PO ×2 (03:00→11:08)
[2025-04-08 03:04] VITALS: BP 138/80; PULSE 91; RESP 20; TEMP 37.2; O2SAT 96
[2025-04-08 07:27] VITALS: BP 142/83; PULSE 92; RESP 18; TEMP 36; O2SAT 98
[2025-04-08] MEDS: Nicotine 14 MG PATCH.TD24 TRANSDERMA (07:28)
[2025-04-08] MEDS: 0.9 % Sodium Chloride Flush 3 ML SYRINGE IVFLUSH (07:29)
--- NOTE | 2025-04-08 07:39 | PM.PNGS ---
Subjective Subjective Date of Service: 04/08/25 Interval history: Very sore this morning. Reports abdominal pain but mostly at drain site and denies RUQ pain. Had solid diet yesterday and did well throughout the day but had nausea with dinner. Resolved after. OOB and ambulated halls yesterday. Physical Exam Vital Signs: Vital Signs: Last Vital Signs Temp 96.8 F 04/08/25 07:27 Pulse 92 04/08/25 07:27 Resp 18 04/08/25 07:27 BP 142/83 H 04/08/25 07:27 Pulse Ox 98 04/08/25 07:27 O2 Del Method Room Air 04/08/25 07:27 O2 Flow Rate 2 04/07/25 03:25 BMI result Body Mass Index 46.0 Const: General: comfortable, no acute distress and alert Orientation/consciousness: patient oriented x3 Resp: Effort & Inspection: normal respiratory effort and able to speak in complete sentences GI: Other: soft incisions clean drain with scant serous appearing drainage, nonbilious mild incisional tenderness Palpation (GI): no guarding and not rigid Skin: General skin exam: no rashes or lesions noted and no jaundice Neuro: General: patient oriented x3 and moves all extremities Objective Data Active Medications Acetaminophen (Acetaminophen 325 Mg Tablet) 650 mg PO Q6H PRN PRN Reason: Pain, Mild 1-3,fever,headache Al Hydroxide/Mg Hydroxide (Magnesium Hydrox/Alum Hydrox 30 Ml Oral.Susp) 30 ml PO Q4H PRN PRN Reason: Heartburn Calcium Carbonate (Calcium Carbonate 750 Mg Tab.Chew) 750 mg PO Q4H PRN PRN Reason: Heartburn Enoxaparin Sodium (Enoxaparin Sodium 40 Mg/0.4 Ml Syringe) 40 mg SUBCUT Q24H [facility] Last Admin: 04/07/25 21:03 Dose: 40 mg Documented By: YUE Hydromorphone HCl (Hydromorphone Hcl 1 Mg/Ml Syringe) 0.5 mg IVPUSH Q4H PRN; Protocol PRN Reason: Pain, Severe (Pain Scale 7-10) Last Admin: 04/07/25 21:03 Dose: 0.5 mg Documented By: YUE Ketorolac Tromethamine (Ketorolac Tromethamine 30 Mg/Ml Vial) 30 mg IVPUSH Q6H PRN PRN Reason: Breakthrough Pain Stop: 04/12/25 02:05 Last Admin: 04/08/25 07:28 Dose: 30 mg Documented By: BARBI Magnesium Hydroxide (Milk Of Magnesia 30 Ml Oral.Susp) 30 ml PO DAILY PRN PRN Reason: Constipation Magnesium Hydroxide (Milk Of Magnesia 30 Ml Oral.Susp) 30 ml PO DAILY PRN PRN Reason: Constipation Melatonin (Melatonin 3 Mg Tablet) 6 mg PO BEDTIME PRN PRN Reason: Insomnia Naloxone HCl (Naloxone Hcl 0.4 Mg/Ml Vial) 0.04 mg IVPUSH Q5M PRN PRN Reason: Excessive sedation or RR < 8 Nicotine (Nicotine 14 Mg Patch.Td24) 14 mg TRANSDERMA DAILY [facility] Last Admin: 04/08/25 07:28 Dose: 14 mg Documented By: BARBI Nicotine Polacrilex (Nicotine Polacrilex 2 Mg Gum) 2 mg BUCCAL Q2H PRN PRN Reason: Nicotine Cravings Nicotine Polacrilex (Nicotine Polacrilex Lozenge 2 Mg Lozenge) 2 mg BUCCAL Q2H PRN PRN Reason: Nicotine Cravings Ondansetron HCl (Ondansetron Hcl 4 Mg/2 Ml Vial) 4 mg IVPUSH Q8H PRN PRN Reason: Nausea and Vomiting Oxycodone HCl (Oxycodone Hcl Immed Release 5 Mg Tablet) 5 mg PO Q6H PRN PRN Reason: Pain, Moderate(Pain Scale 4-6) Last Admin: 04/08/25 03:00 Dose: 5 mg Documented By: CORKY Sodium Chloride (0.9 % Sodium Chloride Flush 3 Ml Syringe) [facility] Last Admin: 04/08/25 07:29 Dose: 3 ml Documented By: BARBI Temazepam (Temazepam 15 Mg Capsule) 15 mg PO BEDTIME PRN PRN Reason: Insomnia Labs 04/07/25 06:00 04/07/25 06:00 Procedures Date of Service Date of Service: 04/08/25 Progress Note: A&P Assessment and plan (1) Acute cholecystitis: Status: Acute Plan POD #2 s/p Laparoscopic Hemicholecystectomy for chronic cholecystitis. Overall doing well post op, some nausea last night. VSS. Abd exam is benign with appropriate post op tenderness, incisions clean, drain nonbilious. Will reassess later this morning. If tolerating solid diet without nausea and pain is controlled on oral analgesics, stable for dc to home likely with drain in place. Patient comfortable with plan. Incentive spirometer not present in room and was brought in by hand sign writer and explained. Instructed 10x/hr. Time Spent With Patient Time: Total time managing care of this patient today ____ minutes. Quality Stroke Does the patient have a stroke diagnosis?: No VTE Prior VTE?: No VTE Risk Level:: Surgical - moderate VTE Device Contraindication: N/A - Device Ordered VTE Drug Contraindication: N/A - Med Ordered
--- NOTE | 2025-04-08 11:23 | MHC.CM.PN ---
pt dcd home self care
[2025-04-08 11:39] VITALS: BP 142/95; PULSE 85; RESP 18; TEMP 36.2; O2SAT 99
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
== END 2025-04-08 13:01 | disposition home or self-care (01) | DRG 263 ==
LOC: HO.ED 19:32 → HO.EDOVER 20:24 → HO.S3 21:41
PROVIDERS: Physician Assistant; Physician Assistant Medical; Admitting Provider Surgery; Emergency Provider Emergency Medicine; PCP Internal Medicine Rheumatology; Visit Provider Surgery
PROC: 0FT44ZZ Resection of Gallbladder, Percutaneous Endoscopic Approach (ICD-10-PCS; CPT 47562; principal; 2025-04-06 10:00)
DX: K81.1 Chronic cholecystitis (principal); K76.0 Fatty (change of) liver, not elsewhere classified; F17.210 Nicotine dependence, cigarettes, uncomplicated; Z79.899 Other long term (current) drug therapy
CPT/HCPCS: 47562; 36415; 74177; 76705; 80048; 80053; 80076; 81003; 83690; 83735; 84702; 85025; 85027; 88304; 99221; 99285; J0131; J0616; J0696; J1171; J1650; J1836; J1885; J2003; J2405; J2704; J3010; Q9967

== ENCOUNTER → 2025-04-06 11:47 | Outpatient (BNV) | payer OTHER, SELFPAY | PROVIDERS: Emergency Provider Emergency Medicine; PCP Internal Medicine Rheumatology; Visit Provider Radiology Diagnostic Radiology | DX: R10.11 Right upper quadrant pain (principal); R10.13 Epigastric pain; R11.0 Nausea; K80.20 Calculus of gallbladder without cholecystitis without obstruction; K82.8 Other specified diseases of gallbladder | CPT/HCPCS: 74177; 76705 ==

== ENCOUNTER → 2025-04-06 19:39 | Outpatient (BNV) | payer OTHER, SELFPAY | PROVIDERS: Admitting Provider Surgery; Emergency Provider Emergency Medicine; PCP Internal Medicine Rheumatology; Visit Provider Surgery | DX: K81.0 Acute cholecystitis (principal) | CPT/HCPCS: 99222 ==

== ENCOUNTER 2025-04-17 13:33 | Outpatient (AMB) | payer OTHER, SELFPAY ==
--- NOTE | 2025-04-17 13:46 | MHC.OFFVIS ---
Vital Signs 04/17/25 13:50 Weight 224 lb BP 133/65 Blood Pressure Location Rt brachial Position Sitting Pulse 103 H Intake Visit Reasons: s/p Lap Vesta Intake Note: Patient here s/p Laparoscopic Hemicholecystectomy. Patient c/o: no concerns. Reports incisions healing well. No longer taking rx pain meds. Surgery (JK): 04-07-2025 Delivery Driver Assistant Required: No Accompanied by: Self / Same As Patient Allergies No Known Allergies Allergy (Verified 04/17/25 13:51) HPI HPI s/p Lap Vesta: Details: Overall doing well, wants to have her drain out. States drain output has been about 15-20 mL daily and has been this clear yellow pink tinged fluid Denies issues with diet or bowel function. Denies significant pain denies nausea or vomiting. Denies fevers or chills. [facility] Surgical History (Updated 04/17/25 @ 16:25 by Kyle Laird PA-C) S/P laparoscopic cholecystectomy (04/07/25) Social History Household Members: Family Housing: House Do you presently have visiting nurse or other home services: No Alcohol intake: current Alcohol intake frequency: holidays/special occasions only Patient Tobacco Use Status: Current everyday Tobacco user Tobacco use type: Cigarette Cigarette Packs Per Day: 0.5 Cigarettes Per Day: 10.0 e-Cigarette/Vaping Use: Never Used Second Hand Smoke Exposure: No Substance Use Type: Marijuana service: No Physical Exam Vital Signs: Last Vital Signs Pulse 103 H 04/17/25 13:50 BP 133/65 04/17/25 13:50 Const General: comfortable and no acute distress Orientation/consciousness: patient oriented x3 GI Other: MOSES drain left upper quadrant, about 10-15 mL of serosanguineous fluid no bile noted removed uneventfully in office Incision sites clean and dry well healed Inspection: No distended Palpation (GI): Soft to palpation, nontender and no guarding Neuro General: patient oriented x3 Assessment & Plan Assessment & Plan (1) S/P laparoscopic cholecystectomy: Onset Date: 04/07/25 Comment: Laparoscopic Hemicholecystectomy Carlitos Schroeder Code(s): Z90.49 - Acquired absence of other specified parts of digestive tract Category: Medical Plan 44-year-old female s/p laparoscopic hemicholecystectomy with Dr. Menezes on 04/07/2025 returning to the office for follow up. To note patient had a MOSES drain on discharge. States that she has been emptying this every day and states that it has been about 15-20 mL per day of a clear pink tinged fluid. She is doing well. Her diet is good she is tolerating without nausea or vomiting. Her bowel function is daily. She is denying significant pain. Just wants the drain out today. On exam the abdomen is soft and benign incision sites appear to be healing well. There was a MOSES drain in the left upper quadrant output does appears serosanguineous and low volume. I removed this today without complication in the office. I addressed this area with a folded 4 x 4 gauze in the large Band-Aid. Instructed her to take this often about 2 days. She is okay to shower and redress as needed if there was any output or open wound remaining. We will continue with activity restrictions for about 2 weeks. No heavy lifting greater than 15-20 lb. She is to follow up in about 2-3 weeks for re-evaluation. Can return sooner with any concerns or questions prior Medications: Discontinued oxycodone Partial Fill upon patient request. Discontinued Reason: Patient Completed Course 5 mg PO Q4H PRN 26 tabs 0RF pain (scale score 7-10) Coding Level of Care Code Global (02096) Diagnoses S/P laparoscopic cholecystectomy Z90.49
[2025-04-17 13:50] VITALS: BP 133/65; PULSE 103
--- OUTSIDE RECORDS SUMMARY | 2025-04-17 18:07 | XMS_ITS | Data Portability ---
Author Organization [place] [facility], Allergy Address [address] [address] Care Team Providers Care Automobile Inspector Name Role Phone NAWAF BALDWIN Primary Care Provider [phone] Assessment Encounter Date Assessment Date Assessment LastModified [...] Symptoms: Other: Missed 1 week Dose Notes: [id number] Not available 12/22/2023 16:07:07 01/04/2024 01/04/2024 Administered [...] Details Recorded Time Hypertrop hy of adenoids 653822695 Active 2019 Hypertrop hy of adenoids; Note: Date Diagnosed : 04/01/2020 12:29 PM (J35.2) Not Available 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; Note: Date Diagnosed : 04/01/2020 12:29 PM (J33.1) Not Available [facility] 4 02:45:44 Bilateral disorder of Eustachia n tubes [id number] 89713 Active 2021 Other specified disorders of Eustachia n tube, bilateral ; Note: Date Diagnosed : 08/11/2021 1:31 PM (H69.83) Not Available [facility] 4 02:45:34 Conductiv e hearing loss, bilateral 615903918 Active 2021 Conductiv e hearing loss, bilateral ; Note: Date Diagnosed : 08/11/2021 1:35 PM (H90.0) Not Available [facility] 4 02:45:40 Allergic rhinitis 12617617 Active 2023 TIM ANNE MD [address] [facility],[place] [address], [place], [address] , [facility] 4 13:15:11 Perennial allergic rhinitis 579881513 Active 2023 RAMANDEEP OCONNOR [address],[place] [address], [place], [address] , [facility] [place] 4 14:36:15 Problem Notes None recorded. Procedures Surgical History Date Name Laterality Status Provider Name and Address Organization Details Recorded Time 02/07/20 24 Allergy Immunotherapy Injections completed DARRIN HURD RN [address] [facility],[address], [address], [facility] - [facility] 02/07/2024 15:08:22 01/04/20 24 Allergy Immunotherapy Injections completed RAMANDEEP OCONNOR [address], [address], [facility] - [facility] 01/04/2024 16:04:59 12/22/19 24 Allergy Immunotherapy Injections completed LEONILA FOUNTAIN [address], [address], [facility] - [facility] 12/22/2023 16:06:48 12/07/19 24 Allergy Immunotherapy Injections completed RAMANDEEP OCONNOR [facility] [address] [facility],[address], [address], [facility] - [facility] 12/07/2023 13:33:26 11/23/19 24 Allergy Immunotherapy Injections completed RAMANDEEP OCONNOR RMA [address], [place], [address], [facility] - [facility] 11/23/2023 16:39:09 11/17/19 24 Allergy Immunotherapy Injections completed DARRIN HURD RN [address], [place], [address], [facility] 11/17/2023 10:40:03 11/10/19 24 Allergy Immunotherapy Injections completed JESUS GRIFFITHSA [address], [place], [address], [facility] - [facility] 11/10/2023 11:39:00 11/04/19 24 Allergy Immunotherapy Injections completed JESUS GRIFFITHSA [address], [place], [address], [facility] - [facility] 11/04/2023 14:05:08 10/20/19 24 Allergy Immunotherapy Injections completed JESUS GRIFFITHSA [address],[facility], [place], [address], [facility] - [facility] 10/20/2023 15:32:53 10/06/19 24 Allergy Immunotherapy Injections completed RAMANDEEP OCONNOR RMA [address] [place] [address], [address], [facility] - [facility] 10/06/2023 10:36:35 09/23/19 24 Allergy Immunotherapy Injections completed RAMANDEEP OCONNOR RMA [address], [place], [address], [facility] - [facility] 09/23/2023 14:37:12 09/13/19 24 Allergy Immunotherapy Injections completed RAMANDEEP TANGC, RMA [address], [place], [address], [facility] - [facility] 09/13/2023 14:36:42 Imaging Results None recorded. Procedure Notes None recorded. Medical Equipment None Reported. Allergies Allergen ID Allergen Name Allergen Category Reaction Reaction Severity Criticality Documentation Date Start Date Code Code System Note Provider Name and Address Organization Details Recorded Time 645399 Benadryl medicatio n Not available Not available Not available 09/13/202314882 7 RxNorm React ion: other react ion, [...] mg tablet 01/25 completed Medicati on ID: [id number] B rand Name: citalopr am Send Method: [...] mg tablet 11/16 completed Medicati on ID: [id number] B rand Name: bupropio n HCl Send Method: E-Prescr ibed Sub s Allowed: subs OK Medic ationGen ericName : bupropio n HCl Not Available Not Available Not Available budesonid e 0.5 mg/2 mL suspensio n for nebulizat ion 2019 active Medicati on ID: [id number] D uration Value: 30 Brand Name: budthao [...] 5 mg tablet active Medicati on ID: 162392 B rand Name: escitalo pram oxalate Send Method: E-Prescr ibed Sub s Allowed: subs OK Medic ationGen ericName : escitalo pram oxalate Not Available Not Available Not Available aripipraz ole 2 mg tablet TAKE 1 TABLET BY MOUTH EVERY DAY active Not Available Not Available No t Available melatonin 10 mg tablet active Medicati on ID: [id number] B rand Name: melatoni n Send Method: E-Prescr ibed Sub s Allowed: subs OK Medic ationGen ericName : melatoni n Not Available Not Available Not Available Flonase Allergy Relief 50 mcg/actua tion nasal spray,trish pension 2 spray into both nostrils 2021 active Medicati on ID: [id number] D uration Value: 30 Prescri bed By [...] Note 225 DARRIN HURD RN Allergy [address] [facility],[address] [place] [address] 09/13/2023 14:27:16 09/16/2023 12:47:06 Perennial allergic rhinitis 841967118 J30.89 1534 [facility] Allergy [address] [facility],[address] [place] [address] 09/23/2023 14:36:02 09/23/2023 14:48:51 Perennial allergic rhinitis [id number] J30.89 2843 TIM ANNE MD [facility] [address] [facility] [place] [address] 10/07/2023 14:10:09 10/07/2023 15:03:50 Allergic rhinitis 00643723 J30.89 3011 [facility] [address] [facility],[address] [place] [address] 10/06/2023 09:23:02 10/06/2023 11:41:21 Perennial allergic rhinitis 211360845 J30.89 4981 LEONILA FOUNTAIN A Allergy [address] [facility],[address] [place] [address] 10/20/2023 15:30:44 10/20/2023 15:40:54 Perennial allergic rhinitis 198796358 J30.89 6689 LEONILA FOUNTAIN A Allergy [address] [facility],[address] [place] [address] 11/04/2023 14:03:57 11/04/2023 15:32:50 Perennial allergic rhinitis 823041167 J30.89 7486 LEONILA FOUNTAIN, A Allergy [facility] [address] [place] [address] 11/10/2023 11:20:30 11/10/2023 13:47:10 Perennial allergic rhinitis 870194046 J30.89 8439 DARRIN HURD RN Allergy [facility] [address] [place] [address] 11/17/2023 10:13:09 11/17/2023 10:42:02 Perennial allergic rhinitis [id number] J30.89 9378 [facility], RMA Allergy [address] [place] [address] 11/23/2023 16:33:38 11/23/2023 16:53:57 Perennial allergic rhinitis 734698344 J30.89 [address]25[address] [facility] Allergy [address] [place] [address] 12/07/2023 10:33:22 12/07/2023 13:34:45 Perennial allergic rhinitis 850490294 J30.89 22089 [facility] Allergy [address] [place] [address] 12/22/2023 16:01:29 12/23/2023 10:50:54 Perennial allergic rhinitis 124491081 J30.89 19132 [facility]EP [facility] Allergy [address] [place] [address] 01/04/2024 15:32:26 01/04/2024 16:26:02 Perennial allergic rhinitis 599851543 J30.89 48518 DARRIN HURD RN Allergy [address] [facility] [address] [place] [address] 02/07/2024 15:07:43 02/07/2024 15:09:27 Perennial allergic rhinitis 356389036 J30.89 Health Concerns Section Related Observation LastModified by Organization Detai ls LastModified Time None Recorded Concern Status LastModified by Organization Details LastModified Time None Recorded Advance Directives Directive None Recorded Payers Insurance Date Sequence Insurance Name Policy Number Policy Arce Covered Member ID Arce Member ID Guarantor Name 12/07/2023 1 [facility] Disha Davisto [id number] Disha Colin Osorio 12/07/2023 1 [facility] Disha Colin Osorio [id number] Disha Colin Osorio 04/16/2024 1 [facility] - [place] ([id number]) [id number] Disha Davisto [id number] Disha Colin Osorio 11/08/2023 1 [facility] (MEDICAID REPLACEMENT - [facility]) Disha Colin Osorio [id number] Disha Colin Osorio 10/06/2023 1 *SELF PAY* Ramon Colin Osorio 11/08/2023 1 [facility] ([facility] Disha Davisto [id number] Disha Colin Osorio OBGyn Episode No OBEpisode recorded.
--- OUTSIDE RECORDS SUMMARY | 2025-04-17 18:07 | XMS_ITS | Patient Health Record ---
Author Organization [facility] Address [address] [place] [address] Care Team Providers Care Metal Lather Name Role Phone Wilfred - DO NOT USE, Dr Calvin Ruiz Prima ry Care Provider Unavailable John Garcia Unavailable [phone] Reason For Referral No Information Plan Of Treatment No Information Insurance Providers Payer Name Payer Address Payer Phone Subscriber Number Group Number Insured Name Patient Relationship to Insured Coverage Start Date Coverage End Date [place] [address] [place] [address] [id number] Disha Osorio Self - patient is the insured 3 3
== END 2025-04-17 14:12 | disposition home or self-care (01) ==
LOC: HO.HGS 13:34
PROVIDERS: PCP Internal Medicine Rheumatology
DX: Z90.49 Acquired absence of other specified parts of digestive tract (principal)
CPT/HCPCS: 99024

== ENCOUNTER → 2025-04-17 13:33 | Outpatient (BNVA) | payer OTHER, SELFPAY | PROVIDERS: PCP Internal Medicine Rheumatology | DX: Z48.815 Encounter for surgical aftercare following surgery on the digestive system (principal); Z90.49 Acquired absence of other specified parts of digestive tract | CPT/HCPCS: 99212 ==